=== PATIENT | male | born 1985 | race Caucasian/White ===

== ENCOUNTER 2017-10-04 14:07 | Emergency (ER) | payer MEDICAID ==
[~2017-10-04] VITALS: Ht 193 cm; Wt 93.0 kg
--- NOTE | 2017-10-04 15:22 | NUR ---
Pt observed inserting 2 fingers in back out his mouth to induce vomiting.
--- NOTE | 2017-10-04 15:29 | NUR ---
OLIVER Kent at the bedside for MSE.
[2017-10-04] MEDS ORDERED: QUETIAPINE FUMARATE 25 MG TABLET PO ONE (15:45)
[2017-10-04] MEDS ORDERED: IBUPROFEN 600 MG TABLET PO ONE (15:45)
[2017-10-04] MEDS ORDERED: IBUPROFEN 600 MG TABLET ONE (15:47)
[2017-10-04] MEDS ORDERED: QUETIAPINE FUMARATE 25 MG TABLET ONE (15:53)
--- NOTE | 2017-10-04 16:04 | NUR ---
Patient is resting comfortably in bed with eyes closed, NAD noted.
[2017-10-04 16:28] VITALS: BP 120/77
--- NOTE | 2017-10-04 16:29 | NUR ---
Patient discharged to home in stable conditon. Written and verbal after care instructions given. Patient verbalizes understanding of instructions.
== END 2017-10-04 16:29 | disposition home or self-care (01) ==
LOC: ER 14:07
DX: F20.9 Schizophrenia, unspecified (principal); F17.200 Nicotine dependence, unspecified, uncomplicated
CPT/HCPCS: 99283; A4663

== ENCOUNTER 2021-10-10 20:31 | Emergency (ER) | payer MEDICAID ==
[~2021-10-10] VITALS: Ht 188 cm; Wt 123.4 kg
--- NOTE | 2021-10-10 23:10 | NUR ---
After being triaged, patient was placed in hallway sitting on chair due to no beds available in the ER.
--- NOTE | 2021-10-11 00:10 | NUR ---
Patient eloped from facility. ER physician notified.
== END 2021-10-11 00:45 | disposition left against medical advice (07) ==
LOC: ER 20:34
DX: Z53.21 Procedure and treatment not carried out due to patient leaving prior to being seen by health care provider (principal)